=== PATIENT | female | born 1965 | race African-American/Black ===

== ENCOUNTER → 2016-07-17 | Outpatient (CLI) | payer OTHER ==
[~2016-07-17] MED LIST: LEVO.1 PO
[2016-07-17 11:57] LABS: AUTOMATED NEUTROPHIL # 5.3 TH/MM3 (1.8-7.7); BASOPHIL # 0.1 TH/MM3 (0-0.2); BASOPHIL % 0.6 % (0.0-2.0); EOSINOPHIL # 0.1 TH/MM3 (0-0.4); EOSINOPHIL % 1.7 % (0.0-4.0); HEMATOCRIT 42.2 % (35.0-46.0); HEMO FLAGS DIFF FINAL; LYMPH % 27.9 % (9.0-44.0); LYMPHOCYTE # 2.3 TH/MM3 (1.0-4.8); MEAN CELL VOLUME 88.4 FL (80.0-100.0); MEAN CORPUSCULAR HEMOGLOBIN 29.8 PG (27.0-34.0); MEAN CORPUSCULAR HGB CONC 33.7 % (32.0-36.0); MONO % 6.3 % (0.0-8.0); NEUT % 63.5 % (16.0-70.0); PLATELET COUNT 319 TH/MM3 (150-450); RED BLOOD COUNT 4.77 MIL/MM3 (4.00-5.30); RED CELL DISTRIBUTION WIDTH 13.9 % (11.6-17.2); WHITE BLOOD COUNT 8.3 TH/MM3 (4.0-11.0)
[2016-07-17 12:01] LABS: BACTERIA, URINE RARE /hpf; BLOOD, URINE MOD (NEG); GLUCOSE,URINE NEG (NEG); HYALINE CAST, URINE 1 /lpf (RARE); KETONE, URINE NEG (NEG); MUCUS URINE FEW /lpf (OCC); NITRITE,URINE NEG (NEG); PH, URINE 5.5 (5.0-8.5); SQUAMOUS EPITHELIAL CELL URINE 2 /hpf (0-5); TRANSITIONAL EPI CELLS, URINE <1 /hpf; URINE COLOR YELLOW (YELLW/STRAW)
[2016-07-17 12:18] LABS: ANION GAP 9 MEQ/L (5-15); AST (GOT) 13 U/L (15-37); BICARBONATE 29.5 MEQ/L (21.0-32.0); BLOOD UREA NITROGEN 14 MG/DL (7-18); CHLORIDE 104 MEQ/L (98-107); GLOMERULAR FILTRATION RATE 76 ML/MIN (>89); GLUCOSE,FASTING 95 MG/DL (74-99); MICRO ALBUMIN RANDOM URINE RAW 17.6 MG/L (0.0-30.0); POTASSIUM 4.3 MEQ/L (3.5-5.1); SODIUM (NA) 142 MEQ/L (136-145)
[2016-07-17 12:27] LABS: ALKALINE PHOSPHATASE 138 U/L (45-117); ALT (GPT) 23 U/L (10-53); FREE T4 1.03 NG/DL (0.76-1.46); HDL CHOLESTEROL 73.9 MG/DL (40.0-60.0); LDL CHOLESTEROL 97 MG/DL (0-99); TOTAL BILIRUBIN ADULT 0.3 MG/DL (0.2-1.0)
== END ==
LOC: ELAB 10:19
PROVIDERS: ATTEND Family Medicine
DX: R79.89 Other specified abnormal findings of blood chemistry (principal); E03.9 Hypothyroidism, unspecified; E55.9 Vitamin D deficiency, unspecified; Z13.0 Encounter for screening for diseases of the blood and blood-forming organs and certain disorders involving the immune mechanism; Z13.220 Encounter for screening for lipoid disorders
CPT/HCPCS: 36415; 80053; 80061; 81001; 82043; 82306; 84439; 84443; 85025

== ENCOUNTER → 2016-09-29 | Outpatient (CLI) | payer OTHER ==
[2016-09-29 13:27] LABS: BACTERIA, URINE RARE /hpf; BLOOD, URINE MOD (NEG); GLUCOSE,URINE NEG (NEG); KETONE, URINE NEG (NEG); MUCUS URINE FEW /lpf (OCC); NITRITE,URINE NEG (NEG); PH, URINE 5.5 (5.0-8.5); SQUAMOUS EPITHELIAL CELL URINE 2 /hpf (0-5); URINE COLOR YELLOW (YELLW/STRAW)
[2016-09-29 13:29] LABS: ANION GAP 6 MEQ/L (5-15); AST (GOT) 17 U/L (15-37); BICARBONATE 29.9 MEQ/L (21.0-32.0); BLOOD UREA NITROGEN 18 MG/DL (7-18); CHLORIDE 106 MEQ/L (98-107); GLOMERULAR FILTRATION RATE 80 ML/MIN (>89); GLUCOSE,FASTING 88 MG/DL (74-99); POTASSIUM 4.7 MEQ/L (3.5-5.1); SODIUM (NA) 142 MEQ/L (136-145)
[2016-09-29 13:30] LABS: ALT (GPT) 20 U/L (10-53)
[2016-09-29 13:33] LABS: ALKALINE PHOSPHATASE 134 U/L (45-117); TOTAL BILIRUBIN ADULT 0.4 MG/DL (0.2-1.0)
== END ==
LOC: PLAB 08:22
PROVIDERS: ATTEND Nurse Practitioner Family
DX: R53.83 Other fatigue (principal); E55.9 Vitamin D deficiency, unspecified
CPT/HCPCS: 80053; 81001; 82306

== ENCOUNTER → 2016-10-20 | Outpatient (CLI) | payer OTHER ==
[2016-10-20 14:14] LABS: CREAT 24 TIMED 90.6 MG/DL
== END ==
LOC: PLAB 09:26
PROVIDERS: ATTEND Nurse Practitioner Family
DX: N39.0 Urinary tract infection, site not specified (principal)
CPT/HCPCS: 82570

== ENCOUNTER → 2017-01-16 | Day surgery (SDC) | payer OTHER ==
[~2017-01-16] MED LIST changes: +ACETAMINOPHEN/HYDROcodone 325 MG/5 MG TAB ONE; +BUPIVACAINE HCL PF 0.25% 30 ML VIAL ONE; +KETOROLAC TROMETHAMINE 30 MG/ML (IVP) VIAL IV PUSH ONE; +MEPERIDINE HCL 25 MG/ML VIAL ONE; +MIDAZOLAM HCL 2 MG/2 ML VIAL ONE; +ONDANSETRON HCL 4 MG/2 ML VIAL IV PUSH ONE; +PROPOFOL 200 MG/20 ML AMP IV ONE; +ceFAZolin INJ 1,000 MG VIAL ONE
--- NOTE | 2017-01-16 13:37 | MP ---
cc: LORENA BAIG DATE OF SURGERY January 16, 2017. DIAGNOSIS Right hand carpal tunnel syndrome. POSTOPERATIVE DIAGNOSIS Right hand carpal tunnel syndrome. SURGEON Dr. Lorena Baig PROCEDURE Right hand open carpal tunnel release. ESTIMATED BLOOD LOSS Minimal. ANESTHESIA TIVA. TOURNIQUET TIME 11 minutes at 250 mmHg pressure. PROCEDURE The patient is brought back to the operative theater. TIVA anesthesia was administered. The right upper extremity was prepped and draped in the usual sterile fashion. We gave infiltration of 0.25% Marcaine to the hand. The arm was exsanguinated. Tourniquet was raised. Made standard incision over the volar aspect of the hand, incised through the deep fascia, identified the transverse carpal ligament. We then incised the ligament in the midportion, then protected the median nerve with a [place] elevator and then incised the ligament proximally and distally making sure that the entire ligament was freed up, the nerve was intact. The tourniquet was released. Hemostasis was achieved. The skin was closed 2-0 Vicryl, followed by 3-0 nylon and hand bundle was applied. POSTOP PLAN Extended carpal tunnel release protocol. MD DERRICK Curtis/RANJANA /1:22 PM /1:29 PM
== END | disposition home or self-care (01) ==
LOC: ESDC 11:48
PROVIDERS: ATTEND Orthopaedic Surgery
DX: G56.01 Carpal tunnel syndrome, right upper limb (principal)
CPT/HCPCS: 01810; 64721; J0690; J1885; J2175; J2250; J2405; J3010

== ENCOUNTER → 2017-06-29 | Outpatient (CLI) | payer OTHER ==
[~2017-06-29] MED LIST changes: -ACETAMINOPHEN/HYDROcodone 325 MG/5 MG TAB ONE; -BUPIVACAINE HCL PF 0.25% 30 ML VIAL ONE; -KETOROLAC TROMETHAMINE 30 MG/ML (IVP) VIAL IV PUSH ONE; -MEPERIDINE HCL 25 MG/ML VIAL ONE; -MIDAZOLAM HCL 2 MG/2 ML VIAL ONE; -ONDANSETRON HCL 4 MG/2 ML VIAL IV PUSH ONE; -PROPOFOL 200 MG/20 ML AMP IV ONE; -ceFAZolin INJ 1,000 MG VIAL ONE
[2017-06-29 14:21] LABS: BACTERIA, URINE OCC /hpf; BILIRUBIN, URINE NEG (NEG); BLOOD, URINE MOD (NEG); GLUCOSE,URINE NEG (NEG); KETONE, URINE NEG (NEG); MUCUS URINE FEW /lpf (OCC); NITRITE,URINE NEG (NEG); SQUAMOUS EPITHELIAL CELL URINE 2 /hpf (0-5); URINE COLOR YELLOW (YELLW/STRAW); URINE LEUKOCYTE ESTERASE TRACE (NEG)
[2017-06-29 14:23] LABS: AUTOMATED NEUTROPHIL # 7.1 TH/MM3 (1.8-7.7); BASOPHIL % 0.4 % (0.0-2.0); EOSINOPHIL # 0.2 TH/MM3 (0-0.4); EOSINOPHIL % 2.1 % (0.0-4.0); HEMATOCRIT 40.9 % (35.0-46.0); HEMOGLOBIN 13.4 GM/DL (11.6-15.3); LYMPH % 20.9 % (9.0-44.0); LYMPHOCYTE # 2.1 TH/MM3 (1.0-4.8); MEAN CELL VOLUME 88.5 FL (80.0-100.0); MEAN CORPUSCULAR HEMOGLOBIN 28.9 PG (27.0-34.0); MEAN CORPUSCULAR HGB CONC 32.6 % (32.0-36.0); MONO % 5.8 % (0.0-8.0); MONOCYTE # 0.6 TH/MM3 (0-0.9); NEUT % 70.8 % (16.0-70.0); PLATELET COUNT 311 TH/MM3 (150-450); RED BLOOD COUNT 4.62 MIL/MM3 (4.00-5.30); RED CELL DISTRIBUTION WIDTH 13.8 % (11.6-17.2); WHITE BLOOD COUNT 10.1 TH/MM3 (4.0-11.0)
[2017-06-29 14:30] LABS: ALBUMIN 3.7 GM/DL (3.4-5.0); AST (GOT) 20 U/L (15-37); BICARBONATE 27.2 MEQ/L (21.0-32.0); BLOOD UREA NITROGEN 15 MG/DL (7-18); CALCIUM 9.2 MG/DL (8.5-10.1); CHLORIDE 105 MEQ/L (98-107); GLOMERULAR FILTRATION RATE 92 ML/MIN (>89); GLUCOSE,FASTING 93 MG/DL (74-99); SODIUM (NA) 141 MEQ/L (136-145)
[2017-06-29 14:31] LABS: ALT (GPT) 22 U/L (10-53); CHOLESTEROL 169 MG/DL (120-200)
[2017-06-29 14:41] LABS: ALKALINE PHOSPHATASE 131 U/L (45-117); CHOLESTEROL/ HDL RATIO 2.66 RATIO; HDL CHOLESTEROL 63.3 MG/DL (40.0-60.0); LDL CHOLESTEROL 98 MG/DL (0-99); TOTAL BILIRUBIN ADULT 0.2 MG/DL (0.2-1.0); TOTAL PROTEIN 7.6 GM/DL (6.4-8.2); TRIGLYCERIDES 38 MG/DL (42-150)
== END ==
LOC: PLAB 09:39
PROVIDERS: ATTEND Nurse Practitioner Family
DX: E03.9 Hypothyroidism, unspecified (principal); E55.9 Vitamin D deficiency, unspecified; Z13.0 Encounter for screening for diseases of the blood and blood-forming organs and certain disorders involving the immune mechanism; Z13.1 Encounter for screening for diabetes mellitus
CPT/HCPCS: 36415; 80053; 80061; 81001; 82306; 84443; 85025

== ENCOUNTER 2017-08-04 19:33 | Emergency (ER) | payer OTHER ==
[~2017-08-04] VITALS: Ht 154.9 cm; Wt 75.0 kg
[2017-08-04 19:35] VITALS: BP 155/72; PULSE 94; RESP 18; TEMP 98.2; O2SAT 98
--- NOTE | 2017-08-04 19:57 | PD ---
HPI Chief Complaint: Injury Time Seen by Provider: 19:49 Travel History International Travel<30 days: No Contact w/Intl Traveler<30days: No Traveled to known affect area: No History of Present Illness HPI 52-year-old female here for evaluation of left foot and ankle pain after mechanical slip and fall that occurred about an hour prior to arrival. The patient reports that she was in her home when she slipped and fell to the ground , landing onto her buttocks. She now complains of pain to her left second through fifth toes as well as lateral ankle. Pain is moderate, constant, worse with movements and palpation. She states initially her lower back was hurting after the fall, however this pain has subsided. She has not yet taken anything for the pain. No head injury or LOC. PFSH Past Medical History Diminished Hearing: No Endocrine: Yes (hypothyroidism) Immunizations Current: Yes Thyroid Disease: Yes (hypothyroid) Tetanus Vaccination: < 5 Years Influenza Vaccination: Yes ?: Not LMP: menapause : 2 Para: 2 Miscarriage: 0 : 0 Past Surgical History Appendectomy: Yes Cholecystectomy: Yes Other Surgery: Yes (left and right wrist carparl tunnel ) Social History Alcohol Use: No Tobacco Use: No Substance Use: No Allergies-Medications (Allergen,Severity, Reaction): Coded Allergies: No Known Allergies (Verified Adverse Reaction, Unknown, 08/04/17) Reported Meds & Prescriptions Reported Meds & Active Scripts Active Reported Synthroid (Levothyroxine Sodium) 100 Mcg Tab 100 Mcg PO DAILY Review of Systems Except as stated in HPI: all other systems reviewed are Neg Physical Exam Narrative GENERAL: Well-developed, well-nourished, awake, alert, comfortable, no apparent distress. SKIN: Focused skin assessment warm/dry. No lacerations, abrasions, or ecchymosis. HEAD: Atraumatic. Normocephalic. EYES: Pupils equal and round. No scleral icterus. No injection or drainage. ENT: Mucous membranes pink and moist. NECK: Trachea midline. No JVD. CARDIOVASCULAR: Regular rate and rhythm. Bilateral dorsalis pedis pulses are brisk and equal. RESPIRATORY: No accessory muscle use. Clear to auscultation. Breath sounds equal bilaterally. MUSCULOSKELETAL: Left foot and ankle without obvious deformity with tenderness to the second through fifth toes as well as lateral malleoli are tender and is, normal range of motion. There is moderate tenderness to the proximal left fibular head. The rest of her joints and extremities are without deformity, without tenderness, with normal range of motion. NEUROLOGICAL: Awake and alert. No obvious cranial nerve deficits. Motor grossly within normal limits. Normal speech. PSYCHIATRIC: Appropriate mood and affect; insight and judgment normal. Data Data Last Documented VS Vital Signs Date Time Temp Pulse Resp B/P (MAP) Pulse Ox O2 Delivery O2 Flow Rate FiO2 08/04/17 19:35 98.2 94 18 155/72 (99) 98 Orders Orders Tibia/Fibula (Ap/Lat) (08/04/17 ) Foot, Complete (Dxw2tby) (08/04/17 ) Ibuprofen (Motrin) (08/04/17 20:00) Kimo Bandage (08/04/17 20:37) Crutches (08/04/17 20:37) MDM Medical Decision Making Medical Screen Exam Complete: Yes Emergency Medical Condition: Yes Differential Diagnosis Left foot/ankle contusion versus fracture versus sprain Narrative Course Left tib-fib and left foot x-ray showed no acute fractures or dislocations. The patient's left ankle was placed in an Kimo wrap and she was provided crutches. She is stable for discharge home with outpatient follow-up with a primary care physician or orthopedist this week. MARIA DEL CARMEN. She was advised on when to return to the emergency department patient verbalizes understanding and agreement with plan. Diagnosis Primary Impression: Injury of left ankle and foot Qualified Codes: S99.912A - Unspecified injury of left ankle, initial encounter; S99.922A - Unspecified injury of left foot, initial encounter Referrals: Esteban Sorenson MD 1 week Primary Care Physician 3 days Additional Instructions: Follow-up with a primary care physician this week. Follow-up with orthopedist Dr. Sorenson or an orthopedist of your choice this week. Return to the emergency department for worsening symptoms or any other concerns. Disposition: 01 DISCHARGE HOME Condition: Stable Santos Schulz MD Aug 04, 2017 19:57
[2017-08-04] MEDS ORDERED: IBUPROFEN 600 MG TAB PO ONE (20:00)
--- NOTE | 2017-08-04 20:22 | RADRPT ---
EXAM DATE/TIME: 08/04/2017 20:10 [facility] COMPARISON: No previous studies available for comparison. INDICATIONS : Left lower leg pain after fall. Pain near ankle. MEDICAL HISTORY : Hypothyroidism. SURGICAL HISTORY : Appendectomy. ENCOUNTER: Initial ACUITY: 1 day PAIN SCORE: 8/10 LOCATION: Left lower leg. FINDINGS: Two view examination of the left tibia demonstrates no evidence of fracture or dislocation. Bony min eralization is normal. The soft tissue structures are intact. CONCLUSION: No acute fracture. Elías Gonzalez MD on August 04, 2017 at 20:19 Board Certified Radiologist. This report was verified electronically.
--- NOTE | 2017-08-04 20:28 | RADRPT ---
EXAM DATE/TIME: 08/04/2017 20:12 [facility] COMPARISON: No previous studies available for comparison. INDICATIONS : Left foot pain after fall. Pain near 2nd, 3rd, 4th and 5th digit. MEDICAL HISTORY : Hypothyroidism. SURGICAL HISTORY : Appendectomy. ENCOUNTER: Initial ACUITY: 1 day PAIN SCORE: 8/10 LOCATION: Left foot. FINDINGS: Three view examination of the left foot demonstrates no soft tissue swelling, dislocation, or fractur e. The tarsal bones appear intact. The calcaneus is intact. Bony mineralization is normal. Small plantar calcaneal spur. Scattered degenerative changes. CONCLUSION: No fracture. Elías Gonzalez MD on August 04, 2017 at 20:25 Board Certified Radiologist. This report was verified electronically.
== END 2017-08-04 20:52 | disposition home or self-care (01) ==
LOC: NEPD 19:33
DX: S99.912A Unspecified injury of left ankle, initial encounter (principal); S99.922A Unspecified injury of left foot, initial encounter; E03.9 Hypothyroidism, unspecified; W01.0XXA Fall on same level from slipping, tripping and stumbling without subsequent striking against object, initial encounter; Y92.009 Unspecified place in unspecified non-institutional (private) residence as the place of occurrence of the external cause
CPT/HCPCS: 73590; 73630; 99283; E0113